=== PATIENT | female | born 1935 | race Caucasian/White ===

== ENCOUNTER → 2017-08-21 | Day surgery (SDC) | payer MEDICARE ==
[2017-08-17 11:20] LABS: BASOPHILS # (AUTO) 0.1 (0.0-0.1); BASOPHILS % 0.9 % (0.0-1.0); EOSINOPHILS # (AUTO) 0.2 (0.0-0.4); EOSINOPHILS % 2.4 % (0.0-6.0); HEMATOCRIT 35.1 % (34.2-44.1); HEMOGLOBIN 10.8 g/dL (12.0-16.0); LYMPHOCYTES # (AUTO) 1.3 (1.0-3.2); LYMPHOCYTES % 16.1 % (18.0-39.1); MEAN CORPUSCULAR HEMOGLOBIN 28.1 pg (28-32); MEAN CORPUSCULAR HGB CONC 30.8 g/dL (31-35); MEAN CORPUSCULAR VOLUME 91.2 fL (81-99); MONOCYTES # (AUTO) 0.6 (0.2-0.8); NEUTROPHILS # (AUTO) 5.8 (2.1-6.9); NEUTROPHILS % 73.2 % (38.7-80.0); PLATELET COUNT 256 x10e3/uL (140-360); RED BLOOD COUNT 3.85 x10e6/uL (3.6-5.1); RED CELL DISTRIBUTION WIDTH 14.6 % (11.7-14.4)
[2017-08-17 11:41] LABS: ANION GAP 13.6 mmol/L (8-16); CALCIUM 9.4 mg/dL (8.4-10.2); CREATININE, SERUM 1.02 mg/dL (0.57-1.11); POTASSIUM 4.6 mmol/L (3.5-5.1)
--- NOTE | 2017-08-17 13:40 | Diagnostic Imaging Report ---
PROCEDURE: Frontal and lateral views of the chest. COMPARISON: None. INDICATIONS: PRE OPERATIVE CHEST X-RAY FOR LEFT ULNA FRACTURE SURGERY FINDINGS: Lines/tubes: None. Lungs: There is no evidence of pneumonia or pulmonary edema. Mild streaky opacities in lung bases may be related to atelectasis or scarring. Eventration of the right hemidiaphragm Pleura: There is no pleural effusion or pneumothorax. Heart and mediastinum: Normal heart size. Calcification and mild tortuosity of the thoracic aorta. Bones: Multilevel spondylosis of the thoracic spine. IMPRESSION: 1. No acute cardiopulmonary disease. Dictated by: Giancarlo Cruz M.D. on 08/17/2017 at 13:42 Electronically approved by: Giancarlo Cruz M.D. on 08/17/2017 at 13:42
[~2017-08-21] MED LIST: ASPIR 8181 MG PO; ATENOLOL50 MG PO; BUPIVACAINE HCL 0.5% INJ 30 ML VIAL INJ ONE; CEFAZOLIN SOD 1 GM VIAL ONE; DESFLURANE 240 ML BTL INH ONE; DEXAMETHASONE SOD PHOS INJ 4 MG/ML VIAL ONE; DIPHENHYDRAMINE25 M2 PO; FENTANYL CITRATE/PF 100MCG/2 ML INJ ONE; KETOROLAC TROMETHAMINE 30 MG/ML VIAL ONE; LIDOCAINE HCL 2% LOCAL INJ 5 ML SDV VIAL INJ ONE; LOSARTAN-HCTZ1 EAC1 PO; METFORMIN HCL500 MG PO; MUPIROCIN 2% OINT 22 GM TUBE ONE; ONDANSETRON HCL INJ 2 MG/ML VIAL ONE; PRADAXA150 MG PO; PROPOFOL IV EMULSION 10 MG/ML 20 ML VIAL ONE; SIMVASTATIN20 MG PO; TYLENOL # 31 EA PO
--- OUTSIDE RECORDS SUMMARY | 2017-08-21 05:12 | XMS REPORT ---
Author Author [facility] Address Unknown Phone Unavailable Care Team Providers Care [employer]ish[employer] Sales Representative Name Role Phone BRIELLE FAULKNER Unavailable Unavailable Problems This patient has no known problems. Allergies, Adverse Reactions, Alerts This patient has no known allergies or adverse reactions. Medications This patient has no known medications. Results Test Description Test Time Test Comments Text Results Atomic Results Result Comments CHEST 2 VIEWS [place] [address] Patient Name: ADONIS JONES MR #: [id number] : 1935 Age/Sex: 82/F Req #: [id number] Adm Physician: Ordered by: BRIELLE FAULKNER MD Report #: [id number] Location: OR Room/Bed: Procedure: [id number] DX/CHEST 2 VIEWS Exam Date: 08/17/17 Exam Time: 1135 REPORT STATUS: Signed PROCEDURE: Frontal and lateral views of the chest. COMPARISON: None. INDICATIONS: PRE OPERATIVE CHEST X- RAY FOR LEFT ULNA FRACTURE SURGERY FINDINGS: Lines/tubes: None. Lungs: There is no evidence of pneumonia or pulmonary edema. Mild streaky opacities in lung bases may be related to atelectasis or scarring. Eventration of the right hemidiaphragm Pleura: There is no pleural effusion or pneumothorax. Heart and mediastinum: Normal heart size. Calcification and mild tortuosity of the thoracic aorta. Bones: Multilevel spondylosis of the thoracic spine. IMPRESSION: 1. No acute cardiopulmonary disease. Dictated by: Anthony Cruz M.D. on 2017 at 13:42 Electronically approved by: Anthony Cruz M.D. on 2017 at 13:42 Dictated By: ANTHONY CRUZ MD 1342 Transcribed By: KAMALJIT on 08/17/17 1342 COPY TO: BRIELLE FAULKNER MD
--- NOTE | 2017-08-21 13:56 | Operative Report ---
DATE OF PROCEDURE: August 21, 2017 FIXING MACHINE OPERATOR: Salty Pike PA-C The patient was brought to the operating room for induction of anesthesia. Throughout this case, my PA's assistance was necessary for retraction of soft tissue and positioning of the extremity. This allows for efficient and technically successful execution of the operation and is considered medically necessary. PREOPERATIVE DIAGNOSIS: Left ulnar shaft fracture. POSTOPERATIVE DIAGNOSIS: Left ulnar shaft fracture. PROCEDURE: Open reduction and internal fixation left ulna. INDICATIONS: The patient is an 82-year-old lady with a displaced ulnar shaft fracture. We have discussed the findings and options. We plan on open reduction with internal fixation. The added challenges due to the distal nature of her fracture and osteoporosis have been discussed. She states she understands and wishes to proceed. DESCRIPTION OF PROCEDURE: The patient was brought to the operating room and placed under general anesthetic. Her left upper extremity was prepped and draped in a sterile manner. A preoperative time out was performed. The extremity was exsanguinated, and a proximal tourniquet was inflated to 250 mmHg. An incision was made on the ulnar aspect of the left forearm just proximal to the wrist. The fracture site was carefully exposed. A small fracture hematoma was debrided. The fracture was unstable and could loosely be lined up. A 5-hole one-third semi-tubular plate was placed over the fracture. This was seated onto the bone using a combination of compression and locking screws. The distal bone was soft; and, therefore, we used two distal locking screws. Intraoperative x-rays confirmed satisfactory reduction and position of the hardware. The wound was irrigated and closed. Subcuticular Vicryl and nylon stitches were used to close the skin. A sugar-tong splint was applied. The patient was extubated and transported to the recovery room in stable condition. There was no blood loss, and all needle and sponge counts were correct. Job#: [id number]
== END | disposition home or self-care (01) ==
LOC: OR 05:10
PROVIDERS: ATTEND Specialist
DX: S52.602A Unspecified fracture of lower end of left ulna, initial encounter for closed fracture (principal); I10 Essential (primary) hypertension; I48.91 Unspecified atrial fibrillation; Z01.812 Encounter for preprocedural laboratory examination
CPT/HCPCS: 25545; 36415; 71046; 76000; 80048; 85025; 93005; J0690; J1100; J1885; J2001; J2405